=== PATIENT | female | born 1965 | race Caucasian/White ===

== ENCOUNTER 2018-12-17 03:50 | Emergency (ER) | payer OTHER ==
[~2018-12-17] VITALS: Ht 177.8 cm; Wt 69.4 kg
[2018-12-17] MEDS ORDERED: SYNTHROID125 MCG PO (03:55)
== END 2018-12-17 12:54 | disposition home or self-care (01) ==
LOC: ER 03:50
DX: R07.89 Other chest pain (principal); R12 Heartburn
CPT/HCPCS: G0378; G0379; 93005